=== PATIENT | male | born 1935 | race Caucasian/White ===

== ENCOUNTER 2017-01-22 17:28 | Inpatient (IN) | payer MEDICARE, OTHER ==
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
--- NOTE | ~2017-01-22 | CO ---
Unit #: [id number] #: [id number] Patient: QUINTIN DOYLE [id number] [address] [address] [id number] I MR#: [id number] NAME: QUINTIN DOYLE. ROOM: 328 Age: 81 Sex: M Admission Date: 01/22/2017 : 1935 Attending Physician: Prabhu Shah M.D. Consultation Date: 01/26/2017 CONSULTATION REPORT REASON FOR CONSULTATION Followup. DISCUSSION Ms. Quintin Doyle is a 81-year-old male seen room 328, bed 1 on 01/26/17. Patient thin built and lying comfortably in bed. Patient sad, depressed, flat, and answers questions in short sentences. Seemed tired, withdrawn. Patient answering questions slowly in short sentences. Patient denied any complaints or any agitation. Denied any suicidal or homicidal ideation. Patient poor historian. Patient's vital signs: 98.1, 61, 16, 114/73, and oxygen saturation 100%. REVIEW OF SYSTEMS Complete review of systems unremarkable. MENTAL STATUS EXAMINATION VITAL SIGNS: Please see above. GENERAL APPEARANCE: Patient dressed casually, thin built, and lying comfortably in bed. ATTENTION SPAN AND CONCENTRATION: Poor. SPEECH: Slow. ORIENTATION: In self and place. MOOD AND AFFECT: Flat, sad, depressed. THOUGHT PROCESS: Somewhat circumstantial. THOUGHT CONTENT: Somewhat guarded and paranoid, but denied any thoughts of harming self or others. RECENT AND REMOTE MEMORY: Poor. LANGUAGE: Fair. FUND OF KNOWLEDGE: Fair to slightly impaired. INSIGHT AND JUDGEMENT: Fair to slightly impaired. DIAGNOSES PSYCHIATRIC 1. Major depressive disorder, recurrent, severe, F33.2. 2. 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 ASSESSMENT/PLAN 1. Supportive psychotherapy and psychoeducation provided to patient. 2. Educated about benefits and side effects of medication and course and prognosis of illness. 3. Advised to continue with current medication. If needed, consider further adjustment of medication. 4. tar worker is currently looking for referral such as in Unit #: [id number] #: [id number] Patient: QUINTIN DOYLE [facility] and also rehabs. Patient lives alone. At this time recommending to assess patient's current living situation and needs to be recommending patient to begin living in a supervised environment. Please feel free to call if any questions. Telephone number . Dictated by... Linda Latham/cayden TD: 01/27/2017 08:40 JOB #: [id number] CONSULTATION REPORT Page 1 of 1 X Isreal Wilson MD X CONSULTATION REPORT
--- NOTE | ~2017-01-22 | A ---
[facility] Nutrition Therapy DATE: 01/23/17 Patient: ENEDELIA FRANCISCO Physician: CAT Address: [address] [place] [address] Room/Bed: [address] [place] [address], Zip: [place] [address] Admit Date: 01/22/17 Date of : 37 Height: 6 0 Weight: 136 62 NUTRITIONAL ASSESSMENT: REASON: Low BMI nutrition assessment 81 yo male admitted for new onset Afib PMH: DVTs, vertigo, HTN, EtOH abuse, frequent falls Anthropometrics: Ht: 6'0" Adm wt: 59 kg BMI: 17.6 IBW: 80.9 kg, 73% IBW Labs: Ca++ 8.0 Alb 3.3 Meds: Coumadin, remeron, NaCl Bowel function: Last BM 01/22 Skin Integrity: Abrasion left contreras/ knee Dry skin Redness to periarea/ coccyx Bruises scattered Edema: none noted Estimated Nutrition Needs: Increased due to low body weight Diet: Heart healthy Assessment: Chart reviewed, events noted. RD spoke with the pt at bedside. Pt reports that he has lost weight; however, he is unsure of exact amount or time frame of weight loss. Pt states that he used to weigh 150# and his admission weight is 130#, indicating ~20# weight loss. Pt reportedly eats "well" at home; however, after discussing the pt's diet, it is evident that he does not consume adequate nutrition. Pt also consumes 2-3 beers per day with a h/o EtOH abuse. Pt reported a desire to stop drinking. RD discussed the importance of adequate nutritional intake, and the nutritional implications of EtOH abuse. RD encouraged adeuate protein-energy intake and suggested Ensure. Pt is agreeable. Dx: Unplanned weight loss RT likely poor intake and lifestyle habits AEB 20# weight loss suspected in unknown time frame, pt intake report. Intervention: 1. Continue heart healthy diet 2. Enure BID 3. MVI with minerals [facility] Therapy DATE: 01/23/17 Patient: ENEDELIA FRANCISCO Physician: CAT Address: [address] [place] [address] Room/Bed: [address] [place] [address], Zip: [place] [address] Admit Date: 01/22/17 Date of : 37 Height: 6 0 Weight: 136 62 Monitoring, Evaluation and Goals: 1. Oral intake; tolerate >50-75% of meal and supplements 2. Weight; promote weight gain towards healthy BMI 3. Prevent/ correct macro and micro- nutrient deficiencies Recommendations: 1. Continue heart healthy diet as tolerated. 2. Ensure BID (vanilla) for supplemental nutrition. 3. Add an MVI with minerals to the pt's medication regimen. Pt is at mild-moderate nutritional risk. Respectfully, GURDEEP CYR RD, LD [facility] cc: client file
--- NOTE | ~2017-01-22 | CO ---
Unit #: [id number] #: [id number] Patient: ENEDELIA DOYLE [id number] [address] [place], [place] [address] [id number] I MR#: [id number] NAME: ENEDELIA DOYLE. ROOM: 328 Age: 81 Sex: M Admission Date: 01/22/2017 : 1935 Attending Physician: Prabhu Shah M.D. Consultation Date: 01/23/2017 CONSULTATION REPORT REASON FOR CONSULTATION Defibrillation. HISTORY OF PRESENT ILLNESS This is a 81-year-old white male, who was brought in by EMS after the visiting nurse called the EMS. The [facility] nurse reported that the patient appeared to have dehydration. He had dark urine. He was under a poor living conditions, looks like that he has not had a bath in months. The patient reported during this interview that he lives alone in his apartment. He only walks with a walker. He has been having a lot of falls lately. He said he just got so weak. He denies any chest pain or pain in his neck, bilateral jaws, shoulders, arms, or elbow. He said he had a known stroke a few years back and he had some left-sided weakness. He has had hypertension. He takes a blood pressure pill. He is on Coumadin for reports of having DVT years ago. The patient is a very alert and oriented, but he just seems to be weak. He does admit to drinking two 16-ounce beers a day. He only eats one meal a day. He denies any increased cough, fever, or chills. He denies any abdominal pain. He denies any palpitations. He denies any dizziness, presyncope, or syncope. In the emergency room, the patient's blood pressure was 153/86, heart rate 76, respirations 18, temperature 98.2, O2 saturations 99% on room air. His initial labs; his creatinine was 0.8, his potassium was 4.1, INR was found to be 5.5. The patient's cardiac enzymes are negative. His urine tox screen is negative. Hemoglobin was found to be 8.3. The patient was admitted for further management. He also has a history of severe degenerative disk disease and spinal stenosis. The patient's chest x-ray showed nothing acute. He does have emphysema. He quit smoking two years ago. His EKG appeared to look atrial fibrillation with the rate is controlled. Cardiology was consulted to assist with evaluation and management. PAST MEDICAL HISTORY 1. Hypertension. 2. Reports that he had rheumatic fever at the age of 14. 3. History of DVTs in bilateral lower extremities, been on Coumadin. 4. Vertigo. 5. History of frequent falls. 6. History of alcohol abuse. 7. Reformed smoker, quit 2 years ago. 8. History of anemia. Unit #: [id number] #: [id number] Patient: ENEDELIA DOYLE 9. Degenerative joint disease and history of spinal stenosis. 10. Previous stroke in 1994, left-sided residual. 11. Probable COPD. 12. 01/2015, 2D echo shows LVEF of 50% to 55% with mild tricuspid regurgitation with elevated RVSP of 30 to 40 mmHg. PAST SURGICAL HISTORY Tonsillectomy. HOME MEDICATIONS Coumadin 2 mg p.o. five days a week, does not take it on Wednesday; Cardura 2 mg p.o. daily. ALLERGIES Penicillin. SOCIAL HISTORY The patient lives in an apartment alone. He says his son comes in and brings his food. He does not get out hardly at all. [facility]NA comes to his house once a month. He drinks two beers a day. He quit smoking two years ago, but was a heavy smoker for most of his adult life. No illicit drug abuse. FAMILY HISTORY His mother had uterine cancer. His father had lung cancer and Parkinson's. His siblings were in generally well health. REVIEW OF SYSTEMS See details in HPI. PHYSICAL EXAMINATION GENERAL: Mr. Doyle is a 81-year-old white male, in no acute respiratory distress. He is awake, alert, and oriented. VITAL SIGNS: Blood pressure is 139/72, heart rate 66, respirations 18, temperature 98.1, O2 saturations 100% on room air. NECK: Trachea midline. No thyromegaly or lymphadenopathy. Normal carotid upstrokes. No jugular venous distention. HEART: S1 and S2. Irregular rate and rhythm. LUNGS: Diminished. ABDOMEN: Soft and nontender. EXTREMITIES: Pedal pulses are very faint. 1+ pedal edema on the left. Has scabbed and blistered areas on his lower contreras areas of both lower extremities. NEUROLOGIC: He has a very poor hygiene, but he is awake, alert, and oriented. DIAGNOSTIC STUDIES LABORATORY RESULTS: Glucose is 107, BUN 12, creatinine 0.7, eGFR is 89.8, sodium 137, potassium 3.4, chloride is 105, CO2 of 26, calcium is 8.0, phosphorus is 3.1, magnesium 1.9, total protein 6.3, albumin 3.3, bilirubin total 1.3, AST 20, ALT 13, alkaline phosphatase is 54. Lipase is 20. CK is 176 and on admission, his CK was 213. Iron is 25, TIBC 188. Lactic acid 1.0. Alcohol less than 5. WBCs 4.9, hemoglobin 8.3, hematocrit 24.6, and platelets are 163. Initial cardiac enzymes; CK-MB is 1.6 with troponin less than 0.05. IMAGING STUDIES: Chest x-ray shows nothing acute. Lungs appeared mildly hyperinflated and emphysematous. Unit #: [id number] #: [id number] Patient: ENEDELIA DOYLE CARDIOVASCULAR STUDIES: EKG shows what appears to have some sinus beats, maybe multifocal atrial tachycardia versus sinus occasionally with PACs and then could be atrial fibrillation with controlled rate. It shows left ventricular hypertrophy, poor R-wave progression. IMPRESSION 1. Atrial fibrillation versus multifocal atrial tachycardia. 2. Frequent falls. 3. Weakness. 4. Anemia. 5. Over anticoagulated. 6. Hypertension. 7. History of deep venous thrombosis. He has been on Coumadin. 8. Alcohol abuse. 9. Reformed smoker. 10. Previous stroke, left-sided residual. 11. Probable chronic obstructive pulmonary disease. 12. Left ventricular ejection fraction of 50% to 55% on 2D echo, 01/2015, with mild tricuspid regurgitation and elevated right ventricular systolic pressure of 30 to 40 mmHg. 13. Frequent falls. 14. Poor hygiene. PLAN 1. The patient's rhythm could be atrial fibrillation or multifocal atrial tachycardia. We will not put the patient on any rate control because his heart rate is controlled. He is already on anticoagulation, but we will hold his Coumadin for now. He does have some anemia. We will watch his CBC closely. There are no reports of any bloody stools or hematemesis. 2. On exam, there are no signs or symptoms of acute congestive heart failure. His cardiac enzymes are negative. EKG does not show anything acute. At this point, conservative medical management. No cardiac workup planned. Add TSH to his labs. Wound care nurse to evaluate the patient and take care of his lower extremity wounds. Dr. Fady Kaur is going to be consulted because of his anemia. As mentioned, we will check stools for occult blood. 3. Adult Protective Services has been consulted for his poor hygiene condition and poor living conditions. 4. Further recommendations pending per Dr. Chavez. Thank you very much for allowing us to assist in the care. Dictated by... Melany Tarqi A.P.R.N. for Linda Lopez/charismal TD: 01/23/2017 18:41 JOB #: [id number] CC: [facility] Unit #: [id number] #: [id number] Patient: ENEDELIA DOYLE [place] CONSULTATION REPORT Page 1 of 1 X Melany Tariq APRN X CONSULTATION REPORT
--- NOTE | ~2017-01-22 | EKG ---
PATIENT: ENEDELIA FRANCISCO UNIT #: [id number] Ventricular Rate: 62 BPM Atrial Rate: 62 BPM P-R Interval: 232 ms QRS Duration: 86 ms Q-T Interval: 442 ms QTC Calculation(Bezet): 448 ms Calculated R [place]: -5 degrees Calculated T [place]: 0 degrees Diagnosis Line: Sinus rhythm with 1st degree A-V block with Diagnosis Line: Premature atrial complexes Diagnosis Line: Otherwise normal ECG Diagnosis Line: When compared with ECG of 22-JAN-2017 19:33, Diagnosis Line: (unconfirmed) Diagnosis Line: Sinus rhythm has replaced Atrial fibrillation Diagnosis Line: Inverted T waves have replaced nonspecific T wave Diagnosis Line: abnormality in Inferior leads Diagnosis Line: Confirmed by DENI RECINOS MD ([id number]) on Diagnosis Line: 01/26/2017 5:19:03 PM INTERPRETING MD: NICOLAS
--- NOTE | ~2017-01-22 | EKG ---
PATIENT: ENEDELIA FRANCISCO UNIT #: [id number] Ventricular Rate: 86 BPM Atrial Rate: 89 BPM QRS Duration: 74 ms Q-T Interval: 380 ms QTC Calculation(Bezet): 454 ms Calculated R [place]: 13 degrees Calculated T [place]: 27 degrees Diagnosis Line: Atrial fibrillation Diagnosis Line: Abnormal ECG Diagnosis Line: When compared with ECG of 23-FEB-2015 04:30, Diagnosis Line: Atrial fibrillation has replaced Sinus rhythm Diagnosis Line: Criteria for Inferior infarct are no longer Diagnosis Line: Present Diagnosis Line: Confirmed by ALONZO PEREZ MD ([id number]) on Diagnosis Line: 01/26/2017 3:12:38 PM INTERPRETING MD: ANA GUILLAUME
--- NOTE | ~2017-01-22 | CO ---
Unit #: [id number] #: [id number] Patient: ENEDELIA OSMAN [id number] [facility]. [address] [place], [place] [address] [id number] I MR#: [id number] NAME: ENEDELIA OSMAN. ROOM: 328 Age: 81 Sex: M Admission Date: 01/22/2017 : 1935 Attending Physician: Prabhu Shah M.D. Consultation Date: 01/23/2017 CONSULTATION REPORT ADDITIONAL REFERRING PHYSICIAN Dr. Shah. REASON FOR CONSULTATION Anemia. HISTORY OF PRESENT ILLNESS Mr. Osman is a very pleasant 81-year-old white gentleman, who is extremely frail. He has been admitted with increasing fatigue and hemoglobin of 7.7 with an MCV of 102 without any overt GI bleed in the form of hematemesis, melena, or hematochezia. The patient was also found to have Coumadin toxicity on admission with INR of 6.5. The patient is currently eating his lunch at the time of evaluation. No family was present at the time of examination. He has had a history of recent falls at home. The patient was admitted couple of days ago and at that time, his admission hemoglobin was 9.7, progressively hemoglobin is dropped to 7.7. He does have macrocytosis and normal platelet count. PAST MEDICAL HISTORY Significant for poor mobility; history of DVT in both right and left legs, on chronic long-term anticoagulation; history of atrial fibrillation of recent origin detected during current hospitalization, history of hypertension, tremors, rheumatic fever, alcohol abuse, and history of frequent falls. The patient has refused to go to a halfway despite family persistence. PAST SURGICAL HISTORY Included tonsillectomy and vasectomy. MEDICATIONS Prior to admission included; Tylenol, Cardura, and Coumadin. In the hospital, has been started on antibiotics. ALLERGIES Penicillin. SOCIAL HISTORY Lives by himself. Drinks 2 to 3 beers daily and has had long-standing history of smoking. Quit couple of years ago. FAMILY HISTORY Mother had uterine cancer. Father had lung cancer and Parkinsonism. Unit #: [id number] #: [id number] Patient: ENEDELIA OSMAN REVIEW OF SYSTEMS Detailed review of organ systems does not reveal any recent weight loss. No history of fever, chills, or rigors. No history of headache, seizures, chest pain, or syncope. No history of cough, expectoration, or hemoptysis. No history of dysuria, hematuria, or pyuria. No history of focal seizures or extremity weakness. PHYSICAL EXAMINATION GENERAL: He is alert and oriented, and appears very frail. VITAL SIGNS: His temperature is 97.0, pulse is 80 per minute and regular, respiratory rate is 16, and blood pressure is 139/72. He weighs 130 pounds. Baseline weight has been as high as 190 pounds and most recently about 160 pounds. The patient has lost at least 30 to 40 pounds in the past year. HEENT: He has moderate pallor. There being no icterus or lymphadenopathy. Grade 1 pitting peripheral edema. CARDIOVASCULAR: Reveals normal heart sounds on auscultation. LUNGS: Reveal normal breath sounds with poor air entry. ABDOMEN: Soft and nontender. Liver and spleen are not palpable. Bowel sounds normal. DIAGNOSTIC STUDIES LABORATORY RESULTS: Show a hemoglobin of 7.7, INR of 5.5, BUN and creatinine are normal and MCV is 102, although anemia is macrocytic, his B12 and folic acid levels are normal and iron is low. CLINICAL IMPRESSION The patient's anemia is most likely multifactorial from anemia of chronic disease, iron deficiency. We suggest we will wait for a couple of days for the INR to normalize or optimize before scheduling any GI workup. In any event, the patient is extremely frail and this is going to be a major determinant of how far we want to evaluate Mr. Wyman. Thank you very much for asking me to see this pleasant gentleman. I appreciate the consult. Dictated by... Linda Keys/darrius TD: 01/26/2017 04:32 JOB #: [id number] CC: Latoya Rosado M.D. CONSULTATION REPORT Page 1 of 1 X Fady Kaur MD X CONSULTATION REPORT
--- NOTE | ~2017-01-22 | CO ---
Unit #: [id number] #: [id number] Patient: QUINTIN DOYLE [id number] [address] [address] [id number] I MR#: [id number] NAME: QUINTIN DOYLE. ROOM: 328 Age: 81 Sex: M Admission Date: 01/22/2017 : 1935 Attending Physician: Prabhu Shah M.D. Consultation Date: 01/28/2017 CONSULTATION REPORT REASON FOR CONSULTATION Followup DISCUSSION Mr. Quintin Doyle is a 81-year-old white male seen in room 328 bed-1 on 01/28/17 at [facility]. Patient continues to be sad, depression, withdrawn, flat affect. Patient is feeling somewhat irritable, sad, but no aggressive behavior, tolerating medication fairly well. Patient was able to eat his breakfast and more alert, awake. Patient denied any thoughts of harming self or others or any psychotic symptom. Patient was admitted due to new onset of atrial fibrillation and anemia. Patient responding fairly well to the current medication. The patient is making progress. REVIEW OF SYSTEMS Complete review of systems unremarkable. MENTAL STATUS EXAMINATION GENERAL APPEARANCE: Patient dressed casually in hospital attire, lying comfortably. Attention span and concentration poor. Speech slow, long pause. Orientation in place and person. Mood and affect sad, dysphoric, labile, irritable. Thought process coherent. Thought content - patient denied any thoughts of harming self or others or any psychotic symptoms. Recent and remote memory fair to slightly impaired. Language - fair. Fund of knowledge fair. Insight and judgment fair to slightly impaired. DIAGNOSES PSYCHIATRIC: 1. Major depressive disorder, recurrent, severe - F33.0. 2. 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 ASSESSMENT/PLAN 1. Supportive psychotherapy and psychoeducation provided to patient. 2. Educated about benefits and side effects of medications and course and prognosis of illness. 3. Advised to continue with current medication. If needed, consider further additional medication. Please feel free to call if any questions. Telephone number [phone]. Dictated by... Unit #: [id number] #: [id number] Patient: QUINTIN DOYLE Linda Latham TD: 01/29/2017 08:49 JOB #: [id number] CONSULTATION REPORT Page 1 of 1 X Isreal Wilson MD CONSULTATION REPORT
--- NOTE | ~2017-01-22 | OR ---
Unit #: [id number] #: [id number] Patient: ENEDELIA FRANCISCO [id number] [address] [address] [id number] I MR#: [id number] NAME: ENEDELIA FRANCISCO. ROOM: [facility] Date of Procedure: 01/25/2017 Admission Date: 01/22/2017 Surgeon: Fady Kaur M.D. : 1935 Attending Physician: Prabhu Shah M.D. OPERATIVE REPORT ADDITIONAL ATTENDING PHYSICIAN Dr. Shah. PRIMARY CARE PHYSICIAN None. PREOPERATIVE DIAGNOSIS Anemia of chronic gastrointestinal blood loss. PROCEDURES PERFORMED 1. Upper gastrointestinal endoscopy and biopsy. 2. Upper gastrointestinal endoscopy and dilation with a TTS balloon. POSTOPERATIVE DIAGNOSES 1. The patient had distal esophageal tight benign stricture. The latter was dilated with a 12 to 15 mm TTS balloon up to 13.5 mm. 2. Prepyloric diffuse antral erosive gastritis. A biopsy was obtained from the antrum for CLOtest. 3. Rest of the examination up to duodenum was normal. RECOMMENDATIONS We will discuss with the patient and family regarding scheduling colonoscopy, which is a major undertaking for this gentleman because of the fact that he is so frail. In the meantime, we started him back on healthy heart diet and he is going to receive packed cell transfusions. SEDATION USED MAC. DESCRIPTION OF PROCEDURE Following detailed explanation of the potential risks and complications of an upper endoscopy, namely perforation, bleeding, and complication related to sedation, the patient was brought to GI lab and laid in the left lateral decubitus position. Lubricated tip of the Olympus video upper endoscope was passed through bite block into the proximal esophagus under direct vision. The entire esophageal mucosa was examined. The patient was noted to have a distal esophageal extremely tight stricture. This was partially dilated with the shaft of the pediatric upper GI scope. The scope was then advanced into the gastric cavity and the latter was insufflated. Mucosa of the fundus, body, and antrum were examined. The patient was noted to have diffuse prepyloric antral erosive gastritis. Unit #: [id number] #: [id number] Patient: ENEDELIA FRANCISCO Pylorus was intubated with visualization of the normal duodenal bulb. Upon withdrawal and retroflexion, incisura, cardia, and greater curve were examined and no additional findings were noted. Biopsy was obtained from the antrum for CLOtest. The scope was withdrawn into the distal esophagus. Using a 12 to 15 mm TTS balloon, the distal esophageal stricture was dilated up to 13.5 mm. Excellent dilation was achieved and photodocumentation was obtained. The scope was then withdrawn. The patient returned to the recovery area. He tolerated the procedure without any postprocedure complications. Dictated by... Linda Keys/darrius TD: 01/26/2017 04:09 JOB #: [id number] CC: Latoya Rosado M.D. OPERATIVE REPORT Page 1 of 1 X Fady Kaur MD X PROCEDURE OPERATIVE NOTE
--- NOTE | ~2017-01-22 | EKG ---
PATIENT: ENEDELIA FRANCISCO UNIT #: [id number] Ventricular Rate: 74 BPM Atrial Rate: 70 BPM QRS Duration: 78 ms Q-T Interval: 410 ms QTC Calculation(Bezet): 455 ms Calculated R [place]: -6 degrees Calculated T [place]: 14 degrees Diagnosis Line: Atrial fibrillation Diagnosis Line: Abnormal ECG Diagnosis Line: When compared with ECG of 22-JAN-2017 17:55, Diagnosis Line: (unconfirmed) Diagnosis Line: No significant change was found Diagnosis Line: Confirmed by ALONZO PEREZ MD ([id number]) on Diagnosis Line: 01/26/2017 3:14:00 PM INTERPRETING MD: ANA GUILLAUME
--- NOTE | ~2017-01-22 | HP ---
Unit #: [id number] #: [id number] Patient: ENEDELIA FRANCISCO [id number] [address] [place], [place] [address] [id number] I MR#: [id number] NAME: ENEDELIA FRANCISCO. ROOM: 03853 Age: 81 Sex: M Admission Date: 01/22/2017 : 1935 Attending Physician: Latoya Rosado M.D. HISTORY AND PHYSICAL CHIEF COMPLAINT Generalized weakness. HISTORY OF PRESENT ILLNESS This is a 81-year-old gentleman who has a history of alcohol abuse, DVT on chronic anticoagulation, hypertension, frequent falls, degenerative disk disease, severe degenerative joint disease, history of arthritis, spinal stenosis. He was brought to the emergency room today for the evaluation of generalized weakness. Family was concerned, was calling us for APS. Visiting nurse saw the patient and thought that he has dehydration. Patient was sent to the ER. He has been having very poor hygiene, no shower in one year, eating very poorly. He still drinks alcohol, he said 2-3 beers on a daily basis. [place] get [place] [facility] [place]. Patient was [place] go [place] [facility] [place]. In the ER today, he was found to be in atrial fibrillation which is a new onset as per old records, no record for atrial fibrillation though he is on chronic anticoagulation with Coumadin, rate is being controlled and patient is being admitted for further workup and evaluation for possible [place] [facility] [place] placement. He was also found to be anemic which he has a history of in the past. Though he seems very sharp, he seems a very poor historian also. He denies any fever, chills, cough. He said he had been falling frequently at home. PAST MEDICAL HISTORY 1. 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 He is on chronic anticoagulation. 2. History of vertigo. 3. Hypertension. 4. History of rheumatic fever. 5. History of hand tremors. 6. Alcohol abuse. 7. Tonsillectomy. 8. Vasectomy. 9. History of frequent falls. HOME MEDICATIONS 1. Coumadin 2 mg daily except Wednesday. 2. Cardura 2 mg. 3. Tylenol p.r.n. ALLERGIES Penicillin. SOCIAL HISTORY Patient lives by himself. He drinks 2-3 beers daily basis. He has a Unit #: [id number] #: [id number] Patient: ENEDELIA FRANCISCO history of lifelong tobacco abuse but he quit a couple of years ago. Denies illicit drug use. FAMILY HISTORY Mother had uterine cancer. Father lung cancer and parkinsonism. REVIEW OF SYSTEMS All review of systems negative except for history of present illness. PHYSICAL EXAMINATION VITAL SIGNS: Temperature 98.2, heart rate 76, respiratory rate 18, blood pressure 153/86. GENERAL: Elderly man lying in the bed, comfortably, currently not in any distress. He appears chronically ill, poor hygiene. He is alert, awake, oriented times 2 not in any distress. HEENT: Atraumatic. Pupils are equal and reactive to light and accommodation. NECK: Supple. No JVD, no thyromegaly. LUNGS: Clear to auscultation. No rhonchi, no wheezing. HEART: S1, S2. Regular rate and rhythm. ABDOMEN: Soft, nontender, nondistended. Bowel sounds positive. EXTREMITIES: Left lower extremity with positive edema with also some pedal edema on the left. Bilateral lower extremities soft with skin. Will of the legs. PSYCHIATRIC: Cooperative, talkative, normal mood and affect. DIAGNOSTIC STUDIES LABORATORY: INR 5.5. Troponin less than 0.05. Chemistry sodium 137, potassium 4.1, chloride 104, glucose 111, BUN 17, creatinine 0.8. CK 213. Magnesium 1.9. Lactic acid 1.3. White count 4.9, hemoglobin 8, hematocrit 26, MCV 103.7, platelets 175. IMAGING: Chest x-ray no acute finding. ASSESSMENT AND PLAN 1. New-onset atrial fibrillation, rate is controlled. The patient is already on anticoagulation. Will continue. Will hold Coumadin today, INR is elevated. Repeat INR in the morning. 2. Mild increased CK. Start patient on IV fluid. 3. Macrocytic anemia. Will do anemia workup. 4. Generalized weakness, deconditioning, poor hygiene. Will ask social service technician to evaluate for possible [place] [facility] [place] placement. 5. Left lower extremity edema with questionable cellulitis. Lots of skin secondary to multiple falls. Empirically I will start him on Zosyn while in the hospital. 6. History of alcohol abuse. 7. History of DVT on Coumadin. 8. History of hypertension. 9. Frequent falls. 10. Severe degenerative joint disease. 11. History of spinal stenosis. 12. DVT prophylaxis. Patient on Coumadin. Unit #: [id number] #: [id number] Patient: ENEDELIA FRANCISCO Dictated by Linda Power/griffin TD: 01/22/2017 22:10 JOB #: [id number] HISTORY AND PHYSICAL Page 1 of 1 X X HISTORY AND PHYSICAL
--- NOTE | ~2017-01-22 | CO ---
Unit #: [id number] #: [id number] Patient: QUINTIN OSMAN [id number] [facility]. [place], [place] [address] [id number] I MR#: [id number] NAME: QUINTIN OSMAN. ROOM: 328 Age: 81 Sex: M Admission Date: 01/22/2017 : 1935 Attending Physician: Prabhu Shah M.D. Consultation Date: 01/25/2017 CONSULTATION REPORT REASON FOR CONSULTATION Followup. DISCUSSION Mr. Quintin Osman is a 81-year-old white male, seen in room 328, bed 1, on 01/25/2017 at [facility]. The patient dressed in hospital attire, lying comfortably in bed, seemed to be very withdrawn and tired, and answered questions very slowly with long pauses. The patient received a unit of blood this morning, but seemed somewhat confused, but able to answer questions. The patient reported he missed his food because of different tests. The patient seemed somewhat irritable, sad, dysphoric, feeling of hopelessness and worthlessness. The patient did not show any agitation. Started on Remeron today 7.5 mg at bedtime and Ativan p.r.n. for agitation. REVIEW OF SYSTEMS Complete review of systems is unremarkable except as mentioned above. MENTAL STATUS EXAMINATION Vital signs; temperature 98.4, heart rate 101, respiratory rate 20, blood pressure 174/97, and oxygen saturation 100%. General appearance; the patient thin built, dressed casually in hospital attire, lying comfortably in bed. Attention span and concentration, poor. Speech, slow with long pauses. Orientation in self and place. Mood and affect; sad, dysphoric, and flat. Thought process, circumstantial. Thought content, denied any thoughts of harming self or others or any auditory or visual hallucination. Recent and remote memory, fair to slightly impaired. Language, fair. Fund of knowledge, fair. Insight and judgment, fair to slightly impaired. 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 Major depressive disorder, recurrent, severe, F33.2. ASSESSMENT/PLAN 1. Supportive psychotherapy and psychoeducation provided to the patient. 2. Educated about benefits and side effects of medication and course and prognosis of illness. 3. Advised to continue with Remeron and continue with the treatment. We will continue to follow. Please feel free to call if any questions, telephone #[phone]. Unit #: [id number] #: [id number] Patient: QUINTIN OSMAN Dictated by... Linda Latham/darrius TD: 01/26/2017 13:56 JOB #: [id number] CONSULTATION REPORT Page 1 of 1 X Isreal Wilson MD X CONSULTATION REPORT
--- NOTE | ~2017-01-22 | EKG ---
PATIENT: ENEDELIA FRANCISCO UNIT #: [id number] Ventricular Rate: 90 BPM Atrial Rate: 90 BPM P-R Interval: 182 ms QRS Duration: 72 ms Q-T Interval: 372 ms QTC Calculation(Bezet): 455 ms P [place]: 115 degrees Calculated R [place]: 18 degrees Calculated T [place]: 13 degrees Diagnosis Line: Sinus rhythm with Premature atrial complexes and Diagnosis Line: Premature ventricular complexes Diagnosis Line: Low voltage QRS Diagnosis Line: Borderline ECG Diagnosis Line: When compared with ECG of 24-JAN-2017 07:18, Diagnosis Line: (unconfirmed) Diagnosis Line: Premature ventricular complexes are now Present Diagnosis Line: AR interval has decreased Diagnosis Line: Confirmed by DENI RECINOS MD ([id number]) on Diagnosis Line: 01/26/2017 5:24:08 PM INTERPRETING MD: NICOALS
--- NOTE | ~2017-01-22 | CR72 ---
[facility] A Service of [facility] RADIOLOGY TEXT RESULTS PATIENT: ENEDELIA FRANCISCO LOCATION: [facility] 328-01 : 37 UNIT #: [id number] AGE: [address]: Prabhu Shah MD SEX: M ORDER DR: [id number] [facility] [address] [place], [place] [address] [id number] I MR#: [id number] Acc #: [id number] NAME: ENEDELIA FRANCISCO. : 1935 SEX: M STUDY DATE/TIME: 01/22/2017 17:47 UNIT: CEDOF ROOM: [id number] STUDY DESCRIPTION: CR Chest Single View Portable Attending Physician: Latoya Rosado M.D. Ordering Physician: Kristopher Montenegro M.D. MEDICAL IMAGING REPORT This report is preliminary unless electronic signature is present EXAM AP portable chest date 01/22/2017 at 17:47 HISTORY Left lower extremity edema, shortness of breath and dark urine today. Greater than 40-year smoking history. COMPARISON AP portable chest 02/23/2015. FINDINGS Lungs appear mildly hyperinflated and emphysematous. No acute airspace disease is seen. Stable mild cardiac enlargement. Pulmonary vascular distribution is within normal limits. No pleural effusion or pneumothorax is identified. IMPRESSION 1. No acute cardiopulmonary findings. 2. Lungs appear mildly hyperinflated and emphysematous. Dictated by... Mitra Angela M.D. THIS IS AN ELECTRONICALLY VERIFIED REPORT Mitra Angela M.D. at 01/26/2017 8:40 AM LUIS ARMANDO/kushal TD: 01/23/2017 00:16 JOB #: [id number] MEDICAL IMAGING REPORT Page 1 of 1 COPY
--- NOTE | ~2017-01-22 | CO ---
Unit #: [id number] #: [id number] Patient: QUINTIN FRANCISCO [id number] [facility]. [place], [place] [address] [id number] I MR#: [id number] NAME: QUINTIN FRANCISCO. ROOM: 328 Age: 81 Sex: M Admission Date: 01/22/2017 : 1935 Attending Physician: Prabhu Shah M.D. Consultation Date: 01/24/2017 CONSULTATION REPORT REASON FOR CONSULTATION History of alcohol abuse and depression. HISTORY OF PRESENT ILLNESS Mr. Quintin Francisco is a 81-year-old white male, seen in room 328, bed #1, on 01/24/2017 at [facility]. The patient was admitted on 01/22 with a history of fall and generalized weakness. The patient has a history of alcohol abuse and depression. The patient lives by himself. The patient was able to answer questions, but seemed very withdrawn, flat, sad, and depressed. According to the intake reports, the patient's son will bring food, lives by himself. Family is concerned and calling APS nurse, saw the patient for dehydration. The patient having very poor hygiene; no shower; eating poorly; still drinks alcohol, 2 to 3 beers daily. The patient currently denied any depression, suicidal ideation, or psychotic symptom, but reported having problem with the anxiety. PAST PSYCHIATRIC HISTORY Remarkable for history of anxiety, depression, and alcohol abuse as mentioned above. MEDICAL HISTORY AND MEDICATION HISTORY History of DVTs in right and left leg, chronic anticoagulation, history of vertigo, hypertension, rheumatic fever, history of hand tremor, history of alcohol abuse, and frequent falls. Medications; the patient is on Coumadin, Cardura. ALLERGIES Penicillin. FAMILY HISTORY AND SOCIAL HISTORY The patient lives by himself, has good support from son, drinks 2 to 3 beers daily, having difficulty maintaining his hygiene and grooming. He denied any use of any street drugs. No history of any abuse. REVIEW OF SYSTEMS Complete review of systems is unremarkable except as mentioned above. MENTAL STATUS EXAMINATION Vital signs; temperature 98.7, pulse 82, respiratory rate 17, blood pressure 132/78, and oxygen saturation 100%. General appearance; the patient dressed casually in hospital attire, lying comfortably in bed, seen very withdrawn, sad, dysphoric mood almost, answers question, whispering, poor output of speech. Attention and concentration, fair. Unit #: [id number] #: [id number] Patient: QUINTIN FRANCISCO Speech, slow. Oriented in self and place. Mood and affect, labile. Thought process, coherent. Thought content, the patient denied any thoughts of harming self or others, but somewhat guarded. Recent and remote memory, fair to slightly impaired. Language, fair. Fund of knowledge, fair to slightly impaired. Insight and judgment, fair to slightly impaired. DIAGNOSES Psychiatric; 1. Major depressive disorder, recurrent, severe, F33.2. 2. Alcohol use disorder, moderate to severe, F10.20; rule out major neurocognitive disorder due to Alzheimer disease without behavioral disturbances, F02.80. Secondary diagnosis: Deferred. Medical diagnosis: Please refer to H and P. Stressors: Psychosocial stressors. ASSESSMENT AND PLAN 1. Supportive psychotherapy and psychoeducation provided to the patient. 2. Educated about benefits and side effects of medication, and course and prognosis of illness. 3. I noticed some cognitive deficit with the patient that could be because of age-related cognitive decline versus neurocognitive disorder due to Alzheimer disease. Based on patient's current functioning at this time, I recommending that the patient should be living in a supervised living facility as the current living arrangement is not working and the patient having problem with dehydration, not taking care of himself. At this time, the patient is not able to make informed medical decision, therefore recommending the patient to have a power of research attorney and also APS involvement at this time. 4. Recommending at this time to add Remeron 7.5 mg at bedtime and Ativan 0.5 mg q.6 hours p.r.n. for severe anxiety. Please feel free to call if any questions, telephone #[phone]. Dictated by... Isreal Wilson M.D. JAYCOB/darrius TD: 01/26/2017 09:24 JOB #: [id number] CONSULTATION REPORT Page 1 of 1 X Chhibber,Isreal Z MD X CONSULTATION REPORT
[~2017-01-22 17:28] MED LIST: ACETAMINOPHEN PO; CARDURA1 MG PO; COLACE PO; COUMADIN1 MG PO; MULTIVITAMIN1 UDCAP PO; NORCO 5/325 TAB1 TAB PO
[2017-01-22 18:15] LABS: BASOPHIL% 0.4 % (0-2.5); EOSINOPHIL# 0.1 X10e3 (0-0.7); EOSINOPHIL% 1.3 % (0.0-7.0); HEMATOCRIT 24.6 % (38.0-50.0); HEMOGLOBIN 8.3 gm/dL (13.0-16.0); LYMPHOCYTE# 0.7 X10e3 (1.0-3.5); LYMPHOCYTE% 13.5 % (17.0-45.0); MEAN CELL VOLUME 103.7 FL (83-96); MEAN CORPUSCULAR HEMOGLOBIN 34.9 PG (28-34); MEAN CORPUSCULAR HGB CONC 33.6 g/dL (30-36); MEAN PLATELET VOLUME 8.2 FL (6.5-11.5); MONOCYTE# 0.4 X10e3 (0-1.0); MONOCYTE% 7.4 % (3.0-12.0); NEUTROPHIL# 3.8 X10e3 (1.5-7.1); NEUTROPHIL% 77.4 % (40-75); PLATELET COUNT 175 X10e3 (140-420); RED BLOOD COUNT 2.37 X10e (3.90-5.60); RED CELL DISTRIBUTION WIDTH 13.6 % (11.0-15.5); WHITE BLOOD COUNT 4.9 X10e3 (4.0-10.5)
[2017-01-22 18:16] LABS: DIFF IND NO
[2017-01-22 18:34] LABS: PROTHROMBIN TIME (PATIENT) 61.1 SECONDS (9.6-11.5)
[2017-01-22 18:40] LABS: ALBUMIN SERUM 3.3 g/dL (3.5-5.0); ALCOHOL BLOOD <5 mg/dL ([, 0]); ALKALINE PHOSPHATASE 54 U/L (32-92); ALT (SGPT) 13 U/L (10-40); AST (SGOT) 28 U/L (10-42); BILIRUBIN, DIRECT 0.3 mg/dL (0.0-0.2); BILIRUBIN,TOTAL 1.3 mg/dL (0.2-2.0); BLOOD UREA NITROGEN 17 mg/dL (9-23); BUN/CREATININE RATIO 21.25; CALCIUM SERUM 8.7 mg/dL (8.4-10.2); CARBON DIOXIDE 25 mmol/L (22-31); CHLORIDE 104 mmol/L (100-111); CPK (CREATINE PHOSPHOKINASE) 213 IU/L (36-174); CREATININE SERUM 0.8 mg/dL (0.6-1.4); GLUCOSE FASTING 111 mg/dL (70-110); LIPASE 20 U/L (22-51); MAGNESIUM 1.9 mg/dL (1.6-3.0); PHOSPHOROUS 3.1 mg/dL (2.5-4.6); POTASSIUM 4.1 mmol/L (3.5-5.1); PROTEIN TOTAL SERUM 6.3 g/dL (6.0-8.3); SODIUM 137 mmol/L (135-145)
[2017-01-22 18:42] LABS: POC - CKMB 1.6 ng/mL (0.0-7.9); POC - TROPONIN <0.05 ng/mL (<=0.05)
[2017-01-22 18:46] LABS: INR 5.5
[2017-01-22] MEDS ORDERED: COUMADIN PO (20:57)
[2017-01-22] MEDS ORDERED: CARDURA2 MG PO (20:58)
[2017-01-23 06:35] LABS: URINE SOURCE CLEAN CATCH
[2017-01-23 06:44] LABS: URINE APPEARANCE CLEAR; URINE BILIRUBIN NEG (NEG); URINE BLOOD 2+ (NEG); URINE COLOR YELLOW; URINE GLUCOSE NEG (NEG); URINE KETONE 2+ (NEG); URINE LEUKOCYTE ESTERASE NEG (NEG); URINE NITRATE NEG (NEG); URINE PH 6.5 (5-8); URINE PROTEIN NEG (NEG); URINE SPECIFIC GRAVITY 1.016 (1.003-1.035)
[2017-01-23 06:46] LABS: URINE BACTERIA AUWI NEG (NEGATIVE); URINE SQUAMOUS EPITHELIAL CELL NONE SEEN /[HPF]
[2017-01-23 07:00] LABS: CULTURE INDICATED? NO
[2017-01-23 07:18] LABS: AMPHETAMINE NEG (NEG); BARBITURATES NEG (NEG); BENZODIAZEPINES NEG (NEG); COCAINE NEG (NEG); MARIJUANA NEG (NEG); OPIATES NEG (NEG); TRICYCLIC ANTIDEPRESSANTS NEG (NEG); U METHADONE NEG (NEG)
[2017-01-23 10:49] LABS: BASOPHIL% 1.2 % (0-2.5); EOSINOPHIL# 0.1 X10e3 (0-0.7); EOSINOPHIL% 3.6 % (0.0-7.0); HEMATOCRIT 22.9 % (38.0-50.0); HEMOGLOBIN 7.7 gm/dL (13.0-16.0); LYMPHOCYTE# 0.9 X10e3 (1.0-3.5); LYMPHOCYTE% 22.2 % (17.0-45.0); MEAN CELL VOLUME 103.4 FL (83-96); MEAN CORPUSCULAR HEMOGLOBIN 34.7 PG (28-34); MEAN CORPUSCULAR HGB CONC 33.5 g/dL (30-36); MEAN PLATELET VOLUME 8.2 FL (6.5-11.5); MONOCYTE# 0.3 X10e3 (0-1.0); MONOCYTE% 8.7 % (3.0-12.0); NEUTROPHIL# 2.5 X10e3 (1.5-7.1); NEUTROPHIL% 64.3 % (40-75); PLATELET COUNT 167 X10e3 (140-420); RED BLOOD COUNT 2.21 X10e (3.90-5.60); RED CELL DISTRIBUTION WIDTH 13.4 % (11.0-15.5); WHITE BLOOD COUNT 3.9 X10e3 (4.0-10.5)
[2017-01-23 10:50] LABS: DIFF IND YES
[2017-01-23 11:05] LABS: PLATELET ESTIMATE NORMAL (NORMAL); RBC NORMAL YES
[2017-01-23 11:41] LABS: FOLATE (FOLIC ACID) 9.5 ng/mL (>5.8)
[2017-01-23 12:03] LABS: BUN/CREATININE RATIO 17.14; CREATININE SERUM 0.7 mg/dL (0.6-1.4); GLOM FILT RATE Estimated 89.8 mL/min (>60); POTASSIUM 3.4 mmol/L (3.5-5.1)
[2017-01-24 05:30] LABS: HEMATOCRIT 21.8 % (38.0-50.0); HEMOGLOBIN 7.3 gm/dL (13.0-16.0); MEAN CELL VOLUME 103.3 FL (83-96); MEAN CORPUSCULAR HEMOGLOBIN 34.6 PG (28-34); MEAN CORPUSCULAR HGB CONC 33.5 g/dL (30-36); MEAN PLATELET VOLUME 8.3 FL (6.5-11.5); RED BLOOD COUNT 2.11 X10e (3.90-5.60); RED CELL DISTRIBUTION WIDTH 13.8 % (11.0-15.5); WHITE BLOOD COUNT 3.8 X10e3 (4.0-10.5)
[2017-01-24 05:47] LABS: PROTHROMBIN TIME (PATIENT) 73.1 SECONDS (9.6-11.5)
[2017-01-24 05:48] LABS: INR 6.5
[2017-01-24 08:06] LABS: ALBUMIN SERUM 2.7 g/dL (3.5-5.0); BILIRUBIN,TOTAL 1.3 mg/dL (0.2-2.0); BUN/CREATININE RATIO 18.57; CALCIUM SERUM 8.1 mg/dL (8.4-10.2); CREATININE SERUM 0.7 mg/dL (0.6-1.4); GLOM FILT RATE Estimated 89.8 mL/min (>60); POTASSIUM 4.1 mmol/L (3.5-5.1); PROTEIN TOTAL SERUM 5.6 g/dL (6.0-8.3)
[2017-01-25 07:20] LABS: HEMATOCRIT 20.3 % (38.0-50.0); MEAN CELL VOLUME 103.3 FL (83-96); MEAN CORPUSCULAR HEMOGLOBIN 34.8 PG (28-34); MEAN CORPUSCULAR HGB CONC 33.7 g/dL (30-36); MEAN PLATELET VOLUME 7.8 FL (6.5-11.5); RED BLOOD COUNT 1.96 X10e (3.90-5.60); RED CELL DISTRIBUTION WIDTH 13.2 % (11.0-15.5)
[2017-01-25 07:23] LABS: HEMOGLOBIN 6.8 gm/dL (13.0-16.0)
[2017-01-25 07:43] LABS: ALBUMIN SERUM 2.9 g/dL (3.5-5.0); BILIRUBIN,TOTAL 1.2 mg/dL (0.2-2.0); CALCIUM SERUM 8.5 mg/dL (8.4-10.2); CREATININE SERUM 0.5 mg/dL (0.6-1.4); GLOM FILT RATE Estimated 103.1 mL/min (>60); POTASSIUM 3.9 mmol/L (3.5-5.1); PROTEIN TOTAL SERUM 5.8 g/dL (6.0-8.3)
[2017-01-25 10:57] LABS: INR 1.1
[2017-01-25 10:58] LABS: PROTHROMBIN TIME (PATIENT) 12.2 SECONDS (9.6-11.5)
[2017-01-26 00:59] LABS: HEMATOCRIT 26.1 % (38.0-50.0)
[2017-01-26 01:01] LABS: HEMOGLOBIN 8.9 gm/dL (13.0-16.0)
[2017-01-26 07:10] LABS: INR 1.1
[2017-01-26 07:57] LABS: BUN/CREATININE RATIO 18.57; CALCIUM SERUM 8.2 mg/dL (8.4-10.2); CREATININE SERUM 0.7 mg/dL (0.6-1.4); GLOM FILT RATE Estimated 89.8 mL/min (>60); POTASSIUM 3.8 mmol/L (3.5-5.1)
[2017-01-26 08:10] LABS: HEMATOCRIT 27.6 % (38.0-50.0); HEMOGLOBIN 9.5 gm/dL (13.0-16.0); MEAN CORPUSCULAR HEMOGLOBIN 33.8 PG (28-34); MEAN CORPUSCULAR HGB CONC 34.3 g/dL (30-36); MEAN PLATELET VOLUME 7.8 FL (6.5-11.5); RED BLOOD COUNT 2.8 X10e (3.90-5.60); RED CELL DISTRIBUTION WIDTH 15.5 % (11.0-15.5)
[2017-01-26 08:11] LABS: MEAN CELL VOLUME 98.6 FL (83-96); WHITE BLOOD COUNT 7.1 X10e3 (4.0-10.5)
[2017-01-27 05:53] LABS: HEMATOCRIT 28.5 % (38.0-50.0); HEMOGLOBIN 9.7 gm/dL (13.0-16.0); MEAN CELL VOLUME 98.5 FL (83-96); MEAN CORPUSCULAR HEMOGLOBIN 33.4 PG (28-34); MEAN CORPUSCULAR HGB CONC 33.9 g/dL (30-36); MEAN PLATELET VOLUME 7.8 FL (6.5-11.5); RED BLOOD COUNT 2.89 X10e (3.90-5.60); RED CELL DISTRIBUTION WIDTH 15.8 % (11.0-15.5); WHITE BLOOD COUNT 7.1 X10e3 (4.0-10.5)
[2017-01-27 06:05] LABS: INR 1.1; PROTHROMBIN TIME (PATIENT) 11.9 SECONDS (9.6-11.5)
[2017-01-27 06:25] LABS: BUN/CREATININE RATIO 33.33; CALCIUM SERUM 8.7 mg/dL (8.4-10.2); CREATININE SERUM 0.6 mg/dL (0.6-1.4); GLOM FILT RATE Estimated 95.7 mL/min (>60); POTASSIUM 4.7 mmol/L (3.5-5.1)
[2017-01-28 06:06] LABS: INR 1.1; PROTHROMBIN TIME (PATIENT) 11.6 SECONDS (9.6-11.5)
== END 2017-01-28 12:47 | DRG 309 ==
LOC: CED 17:28 → C3A PCU 21:02 → CEDOF 21:02 → C3A PCU 01-23 02:22
PROVIDERS: Emergency Medicine; Internal Medicine; Internal Medicine Cardiovascular Disease; Internal Medicine Gastroenterology
PROC: 30233K1 Transfusion of Nonautologous Frozen Plasma into Peripheral Vein, Percutaneous Approach (ICD-10-PCS; 2017-01-25)
PROC: 30233N1 Transfusion of Nonautologous Red Blood Cells into Peripheral Vein, Percutaneous Approach (ICD-10-PCS; 2017-01-25)
PROC: 0DB68ZX Excision of Stomach, Via Natural or Artificial Opening Endoscopic, Diagnostic (ICD-10-PCS; principal; 2017-01-25 07:02)
PROC: 0D738ZZ Dilation of Lower Esophagus, Via Natural or Artificial Opening Endoscopic (ICD-10-PCS; 2017-01-25 07:02)
PROC: 30233L1 Transfusion of Nonautologous Fresh Plasma into Peripheral Vein, Percutaneous Approach (ICD-10-PCS; 2017-01-25 07:02)
DX: I48.91 Unspecified atrial fibrillation (principal); I69.854 Hemiplegia and hemiparesis following other cerebrovascular disease affecting left non-dominant side; F33.2 Major depressive disorder, recurrent severe without psychotic features; I07.1 Rheumatic tricuspid insufficiency; J44.9 Chronic obstructive pulmonary disease, unspecified; G30.9 Alzheimer's disease, unspecified; K22.2 Esophageal obstruction; F02.80 Dementia in other diseases classified elsewhere, unspecified severity, without behavioral disturbance, psychotic disturbance, mood disturbance, and anxiety; I10 Essential (primary) hypertension; Z79.01 Long term (current) use of anticoagulants; Z88.0 Allergy status to penicillin; D53.9 Nutritional anemia, unspecified; Z86.718 Personal history of other venous thrombosis and embolism; M19.90 Unspecified osteoarthritis, unspecified site; Z91.81 History of falling; E86.0 Dehydration; Z87.891 Personal history of nicotine dependence; F10.10 Alcohol abuse, uncomplicated; T45.515A Adverse effect of anticoagulants, initial encounter; D50.0 Iron deficiency anemia secondary to blood loss (chronic); K29.50 Unspecified chronic gastritis without bleeding; L03.032 Cellulitis of left toe; M62.3 Immobility syndrome (paraplegic)
CPT/HCPCS: 36415; 71010; 80048; 80053; 80076; 80307; 81003; 82550; 82553; 82607; 82746; 83540; 83550; 83605; 83690; 83735; 84100; 84443; 84484; 85014; 85018; 85025; 85027; 85610; 85730; 86850; 86900; 86901; 86923; 87040; 87077; 93005; 97110; 97162; 97167; 97530; 97535; 99285; G0480; G8978-GP; G8979-GP; G8980-GP; G8987-GO; G8988-GO; J3430; P9016; P9059